=== PATIENT | female | born 1995 | race Hispanic/Latino ===

== ENCOUNTER 2020-11-04 05:51 | Emergency (ER) | payer OTHER ==
[~2020-11-04] VITALS: Ht 160 cm; Wt 56.7 kg
[2020-11-04] MEDS ORDERED: CEFTRIAXONE 1G VIAL IM SCH (07:15)
[2020-11-04] MEDS ORDERED: [UNRECOGNIZED DRUG - OTHER] IV SCH (07:15)
[2020-11-04] MEDS ORDERED: ACETAMINOPHEN 500 MG TABLET PO ONE (07:15)
[2020-11-04] MEDS ORDERED: DEXAMETHASONE IV SCH (07:15)
[2020-11-04] MEDS ORDERED: LIDOCAINE HCL-MPF 1% 2ML VIAL ONE (07:28)
[2020-11-04] MEDS ORDERED: AZIT500T2 PO (08:56)
[2020-11-04] MEDS ORDERED: DEXAMETHASONE SOD PHOSPHATE 10MG/ML 1ML VIAL ONE (09:27)
== END 2020-11-04 09:40 | disposition home or self-care (01) ==
LOC: EDH 05:51
DX: J02.9 Acute pharyngitis, unspecified (principal); E10.9 Type 1 diabetes mellitus without complications
CPT/HCPCS: 87804 ×2; 87880; 96372 ×2; 99284; J0696; J1100; J3490

== ENCOUNTER 2021-03-16 23:11 | Emergency (ER) | payer BC, OTHER ==
[~2021-03-16] VITALS: Ht 160 cm; Wt 68.9 kg
[~2021-03-16 23:11] MED LIST: AZIT500T2 PO
[2021-03-16] MEDS ORDERED: CLIN-141 PO (23:38)
[2021-03-16 23:40] VITALS: BP 126/93
[2021-03-16] MEDS ORDERED: CLINDAMYCIN 150 MG CAP ONE ×2 (23:42→23:43)
[2021-03-17] MEDS ORDERED: CLINDAMYCIN 150 MG CAP PO ONE
== END 2021-03-16 23:54 | disposition home or self-care (01) ==
LOC: EDH 23:11
DX: L02.411 Cutaneous abscess of right axilla (principal); E10.9 Type 1 diabetes mellitus without complications; Z79.899 Other long term (current) drug therapy